=== PATIENT | female | born 1985 | race Two or more races ===

== ENCOUNTER 2018-04-26 06:11 | Emergency (ER) | payer MEDICAID ==
[~2018-04-26] VITALS: Ht 154.9 cm; Wt 123.8 kg
[2018-04-26 06:22] VITALS: BP 120/61
--- NOTE | 2018-04-26 06:30 | NUR ---
ED Nurse Note: Pt c/o abdominal pain, pain and buring when urine in restroom for 4 days. Pt also c/o vaginal irritated. pt reports no other vaginal abnormalites other than pain when urinating. no abnormalities upon urin inspection.
[2018-04-26 06:55] LABS: APPEARANCE,URINE CLEAR; BILIRUBIN, URINE NEGATIVE (NEGATIVE); COLOR,URINE PALE YELLOW; GLUCOSE, URINE (UA) NEGATIVE (NEGATIVE); KETONES,URINE NEGATIVE (NEGATIVE); LEUKOCYTE ESTERASE ,URINE 2+ (NEGATIVE); NITRITE,URINE NEGATIVE (NEGATIVE); PH,URINE 7 (4.5-8.0); PROTEIN,URINE NEGATIVE (NEGATIVE); UROBILINOGEN,URINE NORMAL MG/DL (0.0-1.0)
--- NOTE | 2018-04-26 07:06 | NUR ---
ED Nurse Note: Report given to andre ARIZMENDI.
[2018-04-26] MEDS ORDERED: PHENAZOPYRIDIN100 MG ORAL (07:29)
[2018-04-26] MEDS ORDERED: NITROFURANTOIN100 M2 ORAL (07:29)
--- NOTE | 2018-04-26 07:29 | Emergency Room Report ---
History of Present Illness General Chief Complaint: Female Urogenital Problems Source: Patient Present Illness HPI Patient presents with reports of burning with urination for the past 2-3 days Increase urination as well She reports that she has been getting followed for a ovarian cyst And appears to have been enlarging over the past 2 months and therefore there has been discussion of possible surgery Denies any vomiting denies any mid abdominal pain she complained some Suprapubic discomfort with urination denies any vaginal discharge denies any flank pain denies any trauma Allergies: Coded Allergies: No Known Allergies (Unverified , 04/26/18) Patient History Past Medical History: see triage record Pertinent Family History: none Last Menstrual Period: Apr 01 2018 Now: No Reviewed Nursing Documentation: PMH: Agreed; PSxH: Agreed Nursing Documentation-PMH Past Medical History: No Stated History Review of Systems All Other Systems: negative except mentioned in HPI Physical Exam Vital Signs Date Time Temp Pulse Resp B/P (MAP) Pulse Ox O2 Delivery O2 Flow Rate FiO2 04/26/18 06:19 98.6 93 20 120/61 97 Room Air Sp02 EP Interpretation: reviewed, normal General Appearance: well appearing, no apparent distress Head: normocephalic, atraumatic Eyes: bilateral eye PERRL, bilateral eye EOMI ENT: hearing grossly normal, normal pharynx, TMs + canals normal, uvula midline Neck: full range of motion, supple, no meningismus, no bony tend Respiratory: lungs clear, normal breath sounds, no rhonchi, no respiratory distress, no retraction, no accessory muscle use Cardiovascular #1: normal peripheral pulses, regular rate, rhythm, no edema, no gallop, no JVD, no murmur Gastrointestinal: normal bowel sounds, non tender, soft, no mass, no organomegaly, non-distended, no guarding, no hernia, no pulsatile mass, no rebound Genitourinary: no CVA tenderness Musculoskeletal: normal inspection Neurologic: oriented x3, responsive, switch engineer III-XII nml as tested, motor strength/ tone normal, sensory intact Psychiatric: mood/affect normal Skin: normal color, no rash, warm/dry, palpation normal Lymphatic: normal inspection, no adenopathy Medical Decision Making Diagnostic Impression: Primary Impression: UTI (urinary tract infection) ER Course With the patient's history and examination, multiple differentials considered, including but not limited to , ectopic , ovarian torsion, gastritis, cholecystitis, pancreatitis, appendicitis Patient has a benign abdominal exam Urine sample does show small amount of bacteria and leukocytes given the clinical history and complaint patient is treated for UTI she has close outpatient follow-up Is also following for the ovarian cyst closely Consideration for ovarian torsion is made however patient has no lower abdominal pain And is stable for close initial attempt of outpatient care Labs Test 04/26/18 06:20 Urine Color Pale yellow Urine Appearance Clear Urine pH 7 (4.5-8.0) Urine Specific [place] 1.005 (1.005-1.035) Urine Protein Negative (NEGATIVE) Urine Glucose (UA) Negative (NEGATIVE) Urine Ketones Negative (NEGATIVE) Urine Blood Negative (NEGATIVE) Urine Nitrite Negative (NEGATIVE) Urine Bilirubin Negative (NEGATIVE) Urine Urobilinogen Normal MG/DL (0.0-1.0) Urine Leukocyte Esterase 2+ (NEGATIVE) Urine RBC 0-2 /HPF (0 - 2) Urine WBC 2-4 /HPF (0 - 2) Urine Squamous Epithelial Cells Occasional /LPF Urine Bacteria Occasional /HPF (NONE) Urine HCG, Qualitative Negative (NEGATIVE) Last Vital Signs Date Time Temp Pulse Resp B/P (MAP) Pulse Ox O2 Delivery O2 Flow Rate FiO2 04/26/18 06:22 98.6 71 20 120/61 97 Room Air Status: improved Disposition: HOME, SELF-CARE Condition: Improved Referrals: NOT CHOSEN IPA/MD,REFERRING (PCP) Additional Instructions: Patient is provided with the discharge instructions notified to follow up with primary doctor in the next 2-3 days otherwise return to the er with any worsening symptoms. Please note that this report is being documented using [employer] technology. This can lead to erroneous entry secondary to incorrect interpretation by the dictating instrument. Colton Lundberg DO Apr 26, 2018 07:28
[2018-04-26 07:41] VITALS: BP 120/61
--- NOTE | 2018-04-26 07:42 | NUR ---
ED Nurse Note:pt. received d/c instructions iwth prescriptions and left ER with steady gait
[2018-04-26] MEDS ORDERED: UNOBMED (07:46)
== END 2018-04-26 07:45 | disposition home or self-care (01) ==
LOC: EMR 06:36
DX: N39.0 Urinary tract infection, site not specified (principal)
CPT/HCPCS: 81003; 81025; 99283

== ENCOUNTER 2018-05-18 20:43 | Emergency (ER) | payer MEDICAID ==
[~2018-05-18] VITALS: Ht 162.6 cm; Wt 127.0 kg
[~2018-05-18 20:43] MED LIST: NITROFURANTOIN100 M2 ORAL; PHENAZOPYRIDIN100 MG ORAL; UNOBMED
--- NOTE | 2018-05-18 21:25 | NUR ---
ED Nurse Note: RECIEVED PT FROM HOME, AWAKE, ALERT AND ORIENTED X 4, PT HERE WITH C/O LOWER ABDOMINAL PAIN WITH NAUSEA AND VOMITING X 1 DAY WITH DISCHARGE AND PAIN 8/10, PT DENIES FEVERS OR ANY OTHER COMPLAINTS. PT IS MOANING AND HAS SEVERE PAIN WITH AMBULATING, PT HAS C/O VAGINAL DISCHARGE ALSO.
[2018-05-18 21:41] LABS: APPEARANCE,URINE SLIGHTLY CLOUDY; BILIRUBIN, URINE NEGATIVE (NEGATIVE); COLOR,URINE PALE YELLOW; GLUCOSE, URINE (UA) NEGATIVE (NEGATIVE); KETONES,URINE NEGATIVE (NEGATIVE); LEUKOCYTE ESTERASE ,URINE 2+ (NEGATIVE); NITRITE,URINE NEGATIVE (NEGATIVE); PH,URINE 7 (4.5-8.0); PROTEIN,URINE NEGATIVE (NEGATIVE); UROBILINOGEN,URINE NORMAL MG/DL (0.0-1.0)
[2018-05-18 22:00] VITALS: BP 163/93
--- NOTE | 2018-05-18 22:00 | NUR ---
ED Nurse Note: PT DISCHARGED TO HOME BY ANOTHER NURSE,UGO RODRIGUEZ AT 2200.
[2018-05-18] MEDS ORDERED: MACROBID100 MG ORAL (22:01)
[2018-05-18] MEDS ORDERED: IBUPROFEN600 MG ORAL (22:01)
--- NOTE | 2018-05-18 22:02 | Emergency Room Report ---
History of Present Illness General Chief Complaint: Female Urogenital Problems Source: Patient Present Illness HPI Is a 32-year-old female with no past medical history. She presents with chief complaint of pelvic pain and incontinence of urine. This occurred after eating dinner at a restaurant. She denies any fever chills. Has pain to the right pelvic area. No nausea no vomiting. In February she saw her doctor in the clinic for similar pain and had an ultrasound that showed a 1 cm ovarian cyst. She has not follow-up yet. Denies any fever or chills. Denies any incontinence of bowel. Pain is crampy and sharp. 7 out of 10. Allergies: Coded Allergies: No Known Allergies (Unverified , 04/26/18) Patient History Past Medical History: see triage record, old chart reviewed Past Surgical History: none Pertinent Family History: none Social History: Denies: smoking Last Menstrual Period: n/a Immunizations: other Reviewed Nursing Documentation: PMH: Agreed; PSxH: Agreed Nursing Documentation-PMH Past Medical History: No History, Except For Hx Hypertension: Yes Review of Systems Eye: Denies: eye pain, blurred vision ENT: Denies: ear pain, nose congestion, throat swelling Respiratory: Denies: cough, shortness of breath Cardiovascular: Denies: chest pain, palpitations Gastrointestinal: Denies: abdominal pain, diarrhea, nausea, vomiting Genitourinary: Reports: incontinence Musculoskeletal: Denies: back pain, joint pain Skin: Denies: rash Neurological: Denies: headache, numbness Endocrine: Denies: increased thirst, increased urine Hematologic/Lymphatic: Denies: easy bruising All Other Systems: negative except mentioned in HPI Physical Exam Vital Signs Date Time Temp Pulse Resp B/P (MAP) Pulse Ox O2 Delivery O2 Flow Rate FiO2 05/18/18 20:50 98.1 93 18 163/93 98 Room Air vitals with high blood pressure Sp02 EP Interpretation: reviewed, normal General Appearance: well appearing, no apparent distress, alert, obese Head: normocephalic, atraumatic Eyes: bilateral eye PERRL, bilateral eye EOMI ENT: hearing grossly normal, normal pharynx Neck: full range of motion, supple, no meningismus Respiratory: chest non-tender, lungs clear, normal breath sounds Cardiovascular #1: regular rate, rhythm, no murmur Gastrointestinal: normal bowel sounds, non tender, no mass, no organomegaly, no bruit, non-distended Genitourinary: other - Exam done with nurse Mar as network lead. External exam normal. Internal exam show no discharge. No adnexal masses palpated. No cervical motion tenderness. Musculoskeletal: back normal, gait/station normal, normal range of motion Neurologic: alert, oriented x3 Psychiatric: mood/affect normal Skin: warm/dry Medical Decision Making Diagnostic Impression: Primary Impression: Urinary tract infection Qualified Codes: N30.00 - Acute cystitis without hematuria Additional Impression: Morbid obesity with BMI of 45.0-49.9, adult ER Course Patient presents with incontinence of her urine. Urinalysis appear to have a urinary tract infection. We'll treat with antibiotics. Notice any retention. No evidence of cauda equina syndrome or spinal injury. My exam is unremarkable as far as ovarian cyst. I see no evidence of torsion clinically. I see no need for emergent ultrasound. Last Vital Signs Date Time Temp Pulse Resp B/P (MAP) Pulse Ox O2 Delivery O2 Flow Rate FiO2 05/18/18 20:50 98.1 93 18 163/93 98 Room Air Status: improved Disposition: HOME, SELF-CARE Condition: Stable Scripts Nitrofurantoin Monohyd/M-Cryst (Nitrofurantoin Candler-Mcr 100 mg) 100 Mg Capsule 100 MG ORAL Q12H, #14 CAP Prov: Mauro Joshi MD 05/18/18 Ibuprofen* (MOTRIN*) 600 Mg Tablet 600 MG ORAL THREE TIMES A DAY, #30 TAB 0 Refills Prov: Mauro Joshi MD 05/18/18 Patient Instructions: Urinary Tract Infection Additional Instructions: Follow-up with your doctor in 7 days. Return if symptom worsen. Mauro Joshi MD May 18, 2018 22:02
== END 2018-05-18 22:00 | disposition home or self-care (01) ==
LOC: EMR 21:30
DX: N39.0 Urinary tract infection, site not specified (principal); E66.01 Morbid (severe) obesity due to excess calories; Z68.42 Body mass index [BMI] 45.0-49.9, adult; I10 Essential (primary) hypertension
CPT/HCPCS: 81003; 81025; 87086; 99283